=== PATIENT | male | born 1965 | race Caucasian/White ===

== ENCOUNTER 2018-04-13 20:38 | Emergency (ER) | payer BC, OTHER ==
[~2018-04-13] VITALS: Ht 182.9 cm; Wt 121.6 kg
[~2018-04-13 20:38] MED LIST: ASPIRIN EC81 MG PO; FLUTICASONE PRO16 GM NS; LANSOPRAZOLE30 MG PO; LISINOPRIL20 MG PO; METFORMIN HCL1000 MG PO; SYNTHROID112 MCG PO
--- NOTE | 2018-04-14 05:24 | EKG ---
[facility] [address] [facility] [place] [address] Signed Normal sinus rhythm Normal ECG No previous ECGs available Confirmed by GIBSON CONTRERAS MD ([id number]) on 04/14/2018 5:24:45 AM Electronically Signed By: GIBSON CONTRERAS MD 04/14/18 0524 PATIENT NAME: JAMES NIXON SARI Electrocardiogram DATE OF : 61 PHYSICIAN: GIBSON CONTRERAS MD REPORT #: [id number] REPORT IS CONFIDENTIAL AND NOT TO BE RELEASED WITHOUT AUTHORIZATION
== END 2018-04-13 22:00 | disposition home or self-care (01) ==
LOC: ED 20:38
DX: J20.9 Acute bronchitis, unspecified (principal); K21.9 Gastro-esophageal reflux disease without esophagitis; E11.9 Type 2 diabetes mellitus without complications; I10 Essential (primary) hypertension; E03.9 Hypothyroidism, unspecified; Z87.891 Personal history of nicotine dependence; Z88.8 Allergy status to other drugs, medicaments and biological substances; Z79.899 Other long term (current) drug therapy; Z79.82 Long term (current) use of aspirin; Z79.84 Long term (current) use of oral hypoglycemic drugs
CPT/HCPCS: 71046; 80053; 83735; 84484; 85025; 93005; 93010; 94640; 99284

== ENCOUNTER 2019-01-09 07:55 | Day surgery (SDC) | payer BC, OTHER ==
[~2019-01-09] VITALS: Ht 182.9 cm; Wt 121.6 kg
[~2019-01-09 07:55] MED LIST changes: +BENADRYL ALLERG25 MG PO; +LIPITOR20 MG PO; +MEDROL4 M1 PO; +VENTOLIN HFA18 GM INH; +ZYRTEC10 M3 PO
--- NOTE | 2019-01-09 10:40 | NUR ---
01/09/19 Nitza0 Lani Renee 1034-PATIENT ARRIVED TO PACU ON 2L NC. REACTIV TO VOICE OPENS EYES DENIES PAIN OR NAUSEA. ENCOURAGED TO PASS FLATUS. IVF INFUSING.
--- NOTE | 2019-01-10 07:58 | OR ---
[facility] [address] [place], [place] [address] Signed DATE OF OPERATION: 01/09/2019 SURGEON: Holly Calzada MD PREOPERATIVE DIAGNOSIS: Paternal grandfather with colon cancer at age 93. POSTOPERATIVE DIAGNOSES: 1. Mild to moderate sigmoid diverticulosis. 2. Mild to moderate external hemorrhoids. 3. 4 mm polyp in proximal transverse colon. 4. 3 mm polyp in mid transverse colon. 5. 7 mm polyp in distal splenic flexure. 6. 4 mm polyp at 25 cm. 7. 4 mm polyps x2 at 16 cm. 8. 3 mm polyps x3 at 15 cm. 9. Moderate diffuse melanosis coli. PROCEDURES: Colonoscopy with hot biopsy and random cold biopsies x2. ESTIMATED BLOOD LOSS: None. INDICATIONS: Balta a 53-year-old gentleman asked to see me for his initial colonoscopy. He explained that his paternal grandfather that was diagnosed and of colon cancer at age 93. Balta came to the office with his . She reminded me I have done her colonoscopy and Balta told me I also did on one of his family members as well. Consequently, they are familiar with colonoscopy. Balta told me he has no lower GI complaints. In the office, I gave him a pamphlet on colonoscopy. We looked at that together in detail. He understands the nature of that test along with its risks including, but not limited to gas, bloating, crampy abdominal pain, bleeding, perforation, requiring surgery, and missed diagnosis. He also understands the need for IV conscious sedation he had expressed understanding wished to proceed. PROCEDURE NOTE: Balta was taken into our endoscopy suite and placed in the left lateral decubitus position. He was given IV sedation with 9 mg of Versed and 150 mcg of fentanyl. A digital rectal exam was performed and he does have some [id number]-[id number] external Electronically Signed By: HOLLY CALZADA MD 01/10/19 0758 PATIENT NAME: BALTA NIXON OPERATIVE REPORT DATE OF : 61 REPORT #: [id number] PHYSICIAN: HOLLY CALZADA MD PCP: HOWIE ADAME PA-C REPORT IS CONFIDENTIAL AND NOT TO BE RELEASED WITHOUT AUTHORIZATION [facility] [address] [place], [place] [address] Signed hemorrhoids. He has good sphincter tone. The prostate gland is a little indurated, slightly enlarged, but no dominant nodules. The adult colonoscope was introduced and advanced all around into the cecum under direct visualization of camera. It took some extra sedation and abdominal compression to get into the cecum itself. Unfortunately, his prep was moderate. He had probably 3 areas of liquid particulate stool matter. I simply could not suction it all out through the scope because of the particulate matter. Consequently, he needs to consider a followup interval colonoscopy probably in 12-18 months. We had taken pictures throughout for photodocumentation. The above-mentioned polyps were easily removed with the help of hot biopsy forceps. We could also see the classic tiger striping throughout the colon and rectum associated with melanosis coli. Consequently, took a couple of random cold biopsies for pathologic review. In addition, he does have some diverticula in the left and sigmoid colon. They were moderate in size, few in number, and scattered about. Upon retroflexion of scope in the rectum. Really no additional pathology noted above the anal canal. After this, the gas was suctioned out and the colonoscope removed. Balta tolerated the procedure quite well. RECOMMENDATIONS: I will see Balta back in my office in 7 to 14 days to review his results. We need to discuss possibly a followup colonoscopy in 12 to 18 months with a better bowel prep. Holly Calzada MD [facility]/MODL /[id number] cc: FORTINO Garza MD Micaiah Matthew Kuzma, MD Copies: HOWIE ADAME PA-C, ANDREW L MD Electronically Signed By: HOLLY CALZADA MD 01/10/19 0758 PATIENT NAME: BALTA NIXON OPERATIVE REPORT DATE OF : 61 REPORT #: [id number] PHYSICIAN: HOLLY CALZADA MD PCP: HOWIE ADAME PA-C REPORT IS CONFIDENTIAL AND NOT TO BE RELEASED WITHOUT AUTHORIZATION [address] [address] Signed REMBERTO BRITO MD ~ Electronically Signed By: HOLLY CALZADA MD 01/10/19 0758 PATIENT NAME: BALTA NIXON DAUPHIN OPERATIVE REPORT DATE OF : 61 REPORT #: [id number] PHYSICIAN: HOLLY CALZADA MD PCP: HOWIE ADAME PA-C REPORT IS CONFIDENTIAL AND NOT TO BE RELEASED WITHOUT AUTHORIZATION
== END 2019-01-09 11:15 | disposition home or self-care (01) ==
LOC: DS 07:55 → OPS 07:55 → DS 09:45 → OPS 09:45
PROVIDERS: Colon & Rectal Surgery
PROC: 0DBE8ZZ Excision of Large Intestine, Via Natural or Artificial Opening Endoscopic (ICD-10-PCS; 2019-01-09)
PROC: 0DBL8ZZ Excision of Transverse Colon, Via Natural or Artificial Opening Endoscopic (ICD-10-PCS; 2019-01-09)
PROC: 0DBN8ZZ Excision of Sigmoid Colon, Via Natural or Artificial Opening Endoscopic (ICD-10-PCS; 2019-01-09)
PROC: 0DBP8ZZ Excision of Rectum, Via Natural or Artificial Opening Endoscopic (ICD-10-PCS; principal; 2019-01-09 09:45)
DX: Z12.11 Encounter for screening for malignant neoplasm of colon (principal); K63.5 Polyp of colon; K62.1 Rectal polyp; K64.4 Residual hemorrhoidal skin tags; K63.89 Other specified diseases of intestine; K57.30 Diverticulosis of large intestine without perforation or abscess without bleeding; N40.0 Benign prostatic hyperplasia without lower urinary tract symptoms; I10 Essential (primary) hypertension; J45.909 Unspecified asthma, uncomplicated; K21.9 Gastro-esophageal reflux disease without esophagitis; E03.9 Hypothyroidism, unspecified; E11.9 Type 2 diabetes mellitus without complications; M19.90 Unspecified osteoarthritis, unspecified site; G47.30 Sleep apnea, unspecified; F17.220 Nicotine dependence, chewing tobacco, uncomplicated; Z79.899 Other long term (current) drug therapy; Z79.82 Long term (current) use of aspirin; Z88.8 Allergy status to other drugs, medicaments and biological substances
CPT/HCPCS: 99153; G0500; J2250; J3010; J7120

== ENCOUNTER 2019-03-06 06:25 | Day surgery (SDC) | payer BC, OTHER ==
[~2019-03-06] VITALS: Ht 182.9 cm; Wt 121.6 kg
--- NOTE | 2019-03-06 08:16 | NUR ---
03/06/19 0816 Sheets,Sameera 0803 PT ARRIVED TO PACU ON 3L VIA NC, PT ASLEEP AND WAKES TO TACTILE STIMULI. PERIODS OF APNEA NOTED WHILE ASLEEP, PT VERY DRWOSY AND RIGHT BACK TO SLEEP. 0805 CBG 134. 0814 PERIOD OF APNEA NOTED OFF AND ON, PT ROLLED TO BACK AND SITTING IN HIGH FOLWERS PER REQUEST. PT BACK TO SLEEP. RN CONTINUES TO ENCOURAGE DEEP BREATHING OFF AND ON.
--- NOTE | 2019-03-06 09:48 | NUR ---
PT HAD BEEN TAKEN TO SURGERY-MOTHER WAS WAITING IN . SHE WAS FAIRLY CALM, BUT I COULD SENSE A BIT OF ANXIETY IN HER VOICE. GAVE REASSURANCE, WILL FOLLOW NEEDED
--- NOTE | 2019-03-06 11:43 | OR ---
[facility] [address] [place], [place] [address] Signed DATE OF OPERATION: 03/06/2019 SURGEON: Holly Calzada MD PREOPERATIVE DIAGNOSES: 1. Paternal grandfather with colon cancer at age 93. 2. Diverticulosis. 3. External hemorrhoids. 4. Personal history of multiple colonic polyps in December 2018. POSTOPERATIVE DIAGNOSES: 1. 3-4 mm polyps in proximal right colon, 120 cm, 80 cm, 22 cm (x4) and 6 cm (x6). 2. Possible melanosis coli. 3. Minimal sigmoid diverticulosis. 4. Minimal internal hemorrhoid. PROCEDURE PERFORMED: Colonoscopy with hot biopsy. ESTIMATED BLOOD LOSS: None. INDICATIONS: Balta is a 54-year-old gentleman who came to us in December of this year for his initial colonoscopy. We know his paternal grandfather had colon cancer at age 93. Balta really has no lower GI complaints. He does have moderate diverticulosis along with moderate external hemorrhoids. He also had multiple hyperplastic polyps removed. Unfortunately, his prep was not the best. We asked him to take a double prep and come back at this time to make sure everything was completely clear. I gave Balta and his a pamphlet on colonoscopy in the office. I also gave them a [employer] brochure on colorectal polyps and cancer. They understand the risks including, but not limited to gas, bloating, crampy abdominal pain, bleeding, perforation, requiring surgery, and missed diagnosis. They also understands the need for IV conscious sedation. They had expressed understanding and wished to proceed. DESCRIPTION OF PROCEDURE: Balta was taken into our endoscopy suite and placed in the left lateral decubitus position. He was given a total of 10 mg of Versed and 150 mcg of fentanyl to cover the case. A digital rectal exam was performed. On this occasion, not much in the way of external hemorrhoids. Prostate slightly enlarged and indurated, but not overly Electronically Signed By: HOLLY CALZADA MD 03/06/19 1143 PATIENT NAME: BALTA NIXON OPERATIVE REPORT DATE OF : 61 REPORT #: [id number] PHYSICIAN: HOLLY CALZADA MD PCP: FERNANDA ADAME PA-C REPORT IS CONFIDENTIAL AND NOT TO BE RELEASED WITHOUT AUTHORIZATION [facility] [address] [place], [place] [address] Signed concerning. The adult colonoscope was introduced and advanced under direct visualization of camera without difficulty. We did need some extra sedation abdominal compression in order to get the scope around hepatic flexure and down into the cecum itself. On this occasion, Balta had an excellent prep. We could easily see the ileocecal valve. Multiple pictures were taken throughout for photodocumentation. The above-mentioned polyps were easily removed with the help of a hot biopsy forceps. He did seem to have some very mild faint tiger striping, so we went ahead and took a random biopsy in the transverse colon for pathologic review. He also has some diverticula as [id number]. Once in the rectum, the scope had been retroflexed and he does have some minimal internal hemorrhoid tissue as well. After this, the gas was suctioned out. The colonoscope removed. Balta tolerated procedure quite well. RECOMMENDATIONS: I will see Balta back in my office in 7 to 14 days to review his results. I suspect on this occasion he can stretch out his colonoscopy at least three years. Holly Calzada MD [facility]/MODL /[id number] cc: MD Fernanda Sharma PA-C Andrew L Bower, MD Copies: REMBERTO BRITO MD, CHLOE K PA-C BOWER, ANDREW L MD ~ Electronically Signed By: HOLLY CALZADA MD 03/06/19 1143 PATIENT NAME: BALTA NIXON OPERATIVE REPORT DATE OF : 61 REPORT #: [id number] PHYSICIAN: HOLLY CALZADA MD PCP: FERNANDA ADAME PA-C REPORT IS CONFIDENTIAL AND NOT TO BE RELEASED WITHOUT AUTHORIZATION
== END 2019-03-06 08:48 | disposition home or self-care (01) ==
LOC: DS 06:25 → OPS 06:25 → DS 06:45 → OPS 06:45
PROVIDERS: Colon & Rectal Surgery
PROC: 0DBK8ZZ Excision of Ascending Colon, Via Natural or Artificial Opening Endoscopic (ICD-10-PCS; 2019-03-06)
PROC: 0DBL8ZX Excision of Transverse Colon, Via Natural or Artificial Opening Endoscopic, Diagnostic (ICD-10-PCS; 2019-03-06)
PROC: 0DBP8ZZ Excision of Rectum, Via Natural or Artificial Opening Endoscopic (ICD-10-PCS; 2019-03-06)
PROC: 0DBE8ZZ Excision of Large Intestine, Via Natural or Artificial Opening Endoscopic (ICD-10-PCS; principal; 2019-03-06 06:45)
DX: Z12.11 Encounter for screening for malignant neoplasm of colon (principal); D12.6 Benign neoplasm of colon, unspecified; K63.5 Polyp of colon; K62.1 Rectal polyp; K57.30 Diverticulosis of large intestine without perforation or abscess without bleeding; K64.8 Other hemorrhoids; I10 Essential (primary) hypertension; J45.909 Unspecified asthma, uncomplicated; K21.9 Gastro-esophageal reflux disease without esophagitis; E03.9 Hypothyroidism, unspecified; E11.9 Type 2 diabetes mellitus without complications; M19.90 Unspecified osteoarthritis, unspecified site; F17.220 Nicotine dependence, chewing tobacco, uncomplicated; Z86.010 Personal history of colon polyps; Z98.890 Other specified postprocedural states; Z88.8 Allergy status to other drugs, medicaments and biological substances; Z80.0 Family history of malignant neoplasm of digestive organs; Z79.82 Long term (current) use of aspirin; Z79.899 Other long term (current) drug therapy
CPT/HCPCS: 99153; G0500; J2250; J3010; J7120

== ENCOUNTER 2023-01-05 08:38 | Emergency (ER) | payer BC, OTHER ==
[~2023-01-05] VITALS: Ht 182.9 cm; Wt 117.9 kg
[~2023-01-05 08:38] MED LIST changes: -SYNTHROID112 MCG PO
[2023-01-05] MEDS ORDERED: ELIQUIS5 MG PO (08:53)
[2023-01-05] MEDS ORDERED: SYNTHROID112 MCG PO (08:54)
[2023-01-05] MEDS ORDERED: NAPROXEN500 MG PO (08:54)
[2023-01-05] MEDS ORDERED: VITAMIN B COMP1 EAC1 PO (08:54)
== END 2023-01-05 10:29 | disposition home or self-care (01) ==
LOC: ED 08:38
DX: N13.2 Hydronephrosis with renal and ureteral calculous obstruction (principal); N28.1 Cyst of kidney, acquired; K21.9 Gastro-esophageal reflux disease without esophagitis; E11.9 Type 2 diabetes mellitus without complications; I10 Essential (primary) hypertension; E03.9 Hypothyroidism, unspecified; Z87.442 Personal history of urinary calculi; Z87.891 Personal history of nicotine dependence; Z79.899 Other long term (current) drug therapy; Z79.01 Long term (current) use of anticoagulants; Z79.84 Long term (current) use of oral hypoglycemic drugs; Z86.711 Personal history of pulmonary embolism; Z86.718 Personal history of other venous thrombosis and embolism
CPT/HCPCS: 36415; 74176; 80053; 81001; 85025; 96374; 96375; 99284-25; J1170; J2405

== ENCOUNTER 2023-10-13 16:48 | Emergency (ER) | payer OTHER, BC ==
[~2023-10-13] VITALS: Ht 365.8 cm; Wt 120.4 kg
[~2023-10-13 16:48] MED LIST changes: +CYCLOBENZAPRINE10 MG PO; +ELIQUIS5 MG PO; +NAPROXEN500 MG PO; +PREDNISONE20 MG PO; +SYNTHROID112 MCG PO; +VITAMIN B COMP1 EAC1 PO
[2023-10-13 17:16] LABS: BASOPHILS 0.5 % (0-2); EOSINOPHILS 1.6 % (0-6); HEMATOCRIT 46.5 % (35.0-50.0); HEMOGLOBIN 15.4 g/dL (12.0-18.0); LYMPHOCYTES 8.1 % (24-44); MCH 28.7 (27-36); MCHC 33.1 g/dl (30-36); MCV 86.7 fl (81-99); MONOCYTES 4.7 % (0-12); NEUTROPHILS 85.1 % (39-80); PLATELET COUNT 188 K/uL (140-440); RBC 5.36 M/ul (4.3-5.7); RDW 14.3 (10.5-15.0)
[2023-10-13 17:31] LABS: ALBUMIN 4.2 g/dL (3.4-5.0); ALBUMIN/GLOBULIN RATIO 1.31 (1.1-2.4); ALKALINE PHOSPHATASE 59 U/L (46-116); ALT (SGPT) 45 U/L (14-59); ANION GAP 12.8 (7-21); AST (SGOT) 34 U/L (15-37); BILIRUBIN, TOTAL 0.8 ng/dL (0.2-1.0); BUN/CREATININE RATIO 19.65 (6.0-28.6); CARBON DIOXIDE 29 mmol/L (21-32); CHLORIDE 98 mmol/L (98-107); CREATININE, SERUM 1.17 mg/dL (0.70-1.30); GLOMERULAR FILTRATION RATE,EST 71 mL/min (>60); POTASSIUM 4.8 mmol/L (3.5-5.1); PROTEIN, TOTAL 7.4 g/dL (6.4-8.2); UREA NITROGEN 23 mg/dL (7-18)
[2023-10-13] MEDS ORDERED: HYDROCODON-ACE1 EA11 PO (18:43)
[2023-10-13] MEDS ORDERED: ONDANSETRON ODT8 MG PO (18:43)
[2023-10-13 19:18] VITALS: BP 137/88
== END 2023-10-13 19:20 | disposition home or self-care (01) ==
LOC: ED 16:48
PROVIDERS: Emergency Medicine
DX: K85.90 Acute pancreatitis without necrosis or infection, unspecified (principal); K86.2 Cyst of pancreas; I10 Essential (primary) hypertension; E11.9 Type 2 diabetes mellitus without complications; K21.9 Gastro-esophageal reflux disease without esophagitis; E03.9 Hypothyroidism, unspecified; Z87.891 Personal history of nicotine dependence; Z79.84 Long term (current) use of oral hypoglycemic drugs; Z79.890 Hormone replacement therapy; Z79.51 Long term (current) use of inhaled steroids; Z79.899 Other long term (current) drug therapy
CPT/HCPCS: 80053; 83690; 85025; 96361; 96374; 96375; 99284-25; A9270; C9113; J2405; J7030

== ENCOUNTER 2024-11-07 07:47 | Day surgery (SDC) | payer OTHER ==
[2024-10-08 09:00] VITALS: BP 139/86
[~2024-11-07] VITALS: Ht 182.9 cm; Wt 116.4 kg
[~2024-11-07 07:47] MED LIST changes: +ELIQUIS2.5 MG PO; +HYDROCHLOROTHIA25 MG PO; +HYDROCODON-ACE1 EA11 PO; +IBLOOD GLUCOSE TEST STRIP 1 EA TEST VI PRN; +LACTATED RINGER'S 1,000 ML IV SCH; +LIDOCAINE HCL 1% 5 ML SDV INJ ONE; +OMEPRAZOLE20 MG PO; +ONDANSETRON ODT8 MG PO; +PIOGLITAZONE HC15 MG PO; +ROSUVASTATIN CA20 MG PO; +SITAGLIPTIN100 MG PO
[2024-11-07 08:18] VITALS: BP 149/87
[2024-11-07] MEDS ORDERED: propofoL 200 MG/20 ML VIAL ONE (09:22)
[2024-11-07] MEDS ORDERED: LIDOCAINE HCL 2% 5 ML SDV ONE (09:45)
--- NOTE | 2024-11-07 10:29 | NUR ---
11/07/24 Herminio9 Lani Renee 1022-PATIENT ARRIVED TO PACU ON 2L NC RR EVEN. PATIENT DROWSY EYES CLOSED TALKING ABOUT A DREAM HE WAS HAVING. PATIENT LAYING LEFT LATERAL. IVF INFUSING. PATIENT ORIENTED TO PACU. ABDOMEN SOFT ENCOURAGED TO PASS GAS. GLUCOSE LEVEL 117
[2024-11-07 10:48] VITALS: BP 148/92
--- NOTE | 2024-11-07 12:24 | OR ---
[facility] [facility] [address] [place], [place] [address] Signed DATE OF OPERATION: 11/07/2024 SURGEON: Holly Calzada MD PREOPERATIVE DIAGNOSES: 1. Paternal grandfather with colon cancer at age 93. 2. Personal history of 14 hyperplastic polyps and one tubular adenomatous polyp in 2019 at age 53. 3. Diverticulosis. 4. Hemorrhoids. 5. Mild melanosis coli. POSTOPERATIVE DIAGNOSIS: 1. Long redundant colon. 2. [id number]-kb-[id number] left-sided diverticulosis. 3. Minimal internal hemorrhoids. PROCEDURE: Colonoscopy without biopsy. ESTIMATED BLOOD LOSS: None. INDICATIONS FOR THE PROCEDURE: Balta is a 59-year-old gentleman asked to see me for a followup colonoscopy. We know his paternal grandfather had colon cancer at age 93. His grandfather actually from the colon cancer. I helped Balta in 2019 with his initial colonoscopy at the age of 53. His prep was not the best. We took out nine hyperplastic polyps. They were all 7 mm or less in diameter. He had just a little diverticulosis along with some external hemorrhoids and what we thought was very mild melanosis coli. We brought him back a few months later that same year with a full gallon of polyethylene glycol along with Dulcolax tablets. His prep was much better. We took out five additional hyperplastic polyps and one small tubular adenomatous polyp at 60 cm. They were all 4 mm or less in diameter. Again, we thought he had just some very mild melanosis coli. He had some mild diverticulosis, and we thought some internal hemorrhoids on that occasion. He did use quite a bit of medications. He used 10 mg of Versed and 150 mcg of fentanyl. 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 He also has significant sleep apnea requiring CPAP mask. He also has a full mustache and goatee. Consequently, we did ask for monitored anesthesia care with propofol infusion for his safety, that worked out nicely. In the office, he told me he really does not have any Electronically Signed By: HOLLY CALZADA MD 11/07/24 1224 PATIENT NAME: BALTA NIXON OPERATIVE REPORT DATE OF : 61 REPORT #: [id number] PHYSICIAN: HOLLY CALZADA MD PCP: FERNANDA JEFFREY PA-C REPORT IS CONFIDENTIAL AND NOT TO BE RELEASED WITHOUT AUTHORIZATION [facility] [address] [place] [id number] Signed lower GI complaints. I gave him a pamphlet on colonoscopy. He recalls the nature of the test. There is risk including, but not limited to gas bloating, crampy abdominal pain, bleeding, perforation requiring surgery, and missed diagnosis. We also had gone over the written instructions for the bowel prep once again. We had him take a full gallon of polyethylene glycol throughout the day along with some Dulcolax tablets. His prep was moderate on this occasion. He could use magnesium citrate, followed by polyethylene glycol or simply use more polyethylene glycol in the future. He understands an adult person has to take him home afterwards. He had expressed understanding and wished to proceed. DESCRIPTION OF PROCEDURE: Balta was taken into our endoscopy suite and placed in the left lateral decubitus position. He was given monitored anesthesia care with propofol infusion per our nurse bundles hanger. A digital rectal exam was performed. I did not see any external hemorrhoids on this occasion. He had good sphincter tone. There were no masses. The adult colonoscope was introduced and advanced all around into the cecum under direct visualization of camera. He took extra propofol and abdominal compression to get the scope all the way to the cecum. He has a long redundant colon. His prep was moderate. There were areas of sticky pasty stool. I could simply could irrigate and suction out. We could easily see the cecum and the ileocecal valve. The scope was then slowly withdrawn. We did find a few diverticula in the left colon. They were moderate in size, few in number and scattered about. Once in the rectum, the scope was retroflexed and he does have minimal internal hemorrhoid tissue. We saw old polypectomy scars. No new polyps on this occasion. We really did not see any evidence of any melanosis coli on this occasion. After this, the gas was suctioned out. The colonoscope removed. Balta tolerated the procedure quite well. RECOMMENDATIONS: Mr. Gifford is to follow up in 5 years for repeat colonoscopy based on his family and personal history. He will always need a full gallon of polyethylene glycol. He might add a one ball of magnesium citrate before he starts the polyethylene glycol. He will always need monitored anesthesia care in the future. Holly Calzada MD [facility]/BASILL /[id number] Electronically Signed By: HOLLY CALZADA MD 11/07/24 1224 PATIENT NAME: BALTA NIXON OPERATIVE REPORT DATE OF : 61 REPORT #: [id number] PHYSICIAN: HOLLY CALZADA MD PCP: FERNANDA JEFFREY PA-C REPORT IS CONFIDENTIAL AND NOT TO BE RELEASED WITHOUT AUTHORIZATION [address] [place] [address] Signed cc: Holly Calzada MD Patient Chart [facility] Fernanda Jeffrey PA-C Copies: HOLLY CALZADA MD, CHLOE K PA-C ~ Electronically Signed By: HOLLY CALZADA MD 11/07/24 1224 PATIENT NAME: BALTA NIXON OPERATIVE REPORT DATE OF : 61 REPORT #: [id number] PHYSICIAN: HOLLY CALZADA MD PCP: FERNANDA JEFFREY PA-C REPORT IS CONFIDENTIAL AND NOT TO BE RELEASED WITHOUT AUTHORIZATION
== END 2024-11-07 10:55 | disposition home or self-care (01) ==
LOC: DS 07:47
PROVIDERS: ATTEND Colon & Rectal Surgery
PROC: 0DJD8ZZ Inspection of Lower Intestinal Tract, Via Natural or Artificial Opening Endoscopic (ICD-10-PCS; principal; 2024-11-07 09:40)
DX: K63.89 Other specified diseases of intestine (principal); K64.8 Other hemorrhoids; K57.30 Diverticulosis of large intestine without perforation or abscess without bleeding; K21.9 Gastro-esophageal reflux disease without esophagitis; K64.4 Residual hemorrhoidal skin tags; E11.9 Type 2 diabetes mellitus without complications; I10 Essential (primary) hypertension; E89.0 Postprocedural hypothyroidism; Z80.0 Family history of malignant neoplasm of digestive organs; Z83.710 Family history of adenomatous and serrated polyps; Z88.8 Allergy status to other drugs, medicaments and biological substances; Z86.0101 Personal history of adenomatous and serrated colon polyps
CPT/HCPCS: 00811; J2003; J2704; J7121